=== PATIENT | male | born 1995 ===

== ENCOUNTER 2025-06-13 21:19 | Emergency (ER) | payer SELFPAY ==
[2025-06-13] MEDS: Ketorolac 30 MG/ML SDV IM ONE (22:05)
== END 2025-06-13 22:08 | disposition home or self-care (01) ==
LOC: LB.ED 21:19
DX: S29.012A Strain of muscle and tendon of back wall of thorax, initial encounter (principal); X58.XXXA Exposure to other specified factors, initial encounter; Y93.89 Activity, other specified
CPT/HCPCS: 93005; 96372; 99284; J1885; 93010; 99283